=== PATIENT | male | born 1970 | race Caucasian/White ===

== ENCOUNTER 2021-02-18 20:06 | Emergency (ER) | payer BC ==
[2021-02-18] MEDS ORDERED: KETOROLAC 30 MG/ML INJ ONE (22:42)
[2021-02-18] MEDS ORDERED: HYDROCODONE/APAP 10/325 TAB ONE (22:42)
--- NOTE | 2021-02-18 22:43 | ER ---
Nurse's Notes [facility] [place] Name: Jordan Hdz Age: 50 yrs Sex: Male : 1970 Arrival Date: 02/18/2021 Time: 20:09 Bed 7 Private MD: Diagnosis: Pain in right knee;Effusion, right knee;Other internal derangements of right knee Presentation: 02/18 20:44 Chief complaint: Patient states: he has been having intermittent right knee off and on bb for a couple of months but pain is getting more frequent and today became so bad he couldn't walk on it her took two tylenol 10/325 prior to arrival pain is now 4/10. Coronavirus screen: At this time, the client does not indicate any symptoms associated with coronavirus-19. Ebola Screen: No symptoms or risks identified at this time. Initial Sepsis Screen: Does the patient meet any 2 criteria? No. Patient's initial sepsis screen is negative. Does the patient have a suspected source of infection? No. Patient's initial sepsis screen is negative. Risk Assessment: Do you want to hurt yourself or someone else? Patient reports no desire to harm self or others. Onset of symptoms was February 18, 2021. 20:44 Method Of Arrival: Wheelchair bb 20:44 Acuity: HERMELINDA 3 bb Historical: - Allergies: 20:48 No Known Allergies; bb - Home Meds: 20:48 tylenol 10/325 [Active]; Invokana oral oral [Active]; amlodipine oral [Active]; bb Metformin Oral [Active]; tizanidine oral oral [Active]; Ibuprofen Oral [Active]; - PMHx: 20:48 Diabetes - NIDDM; Hypertension; chronic back pain; bb - PSHx: 20:48 R ACL; dental surgery; bb - Immunization history:: Adult Immunizations up to date. - Social history:: Smoking status: Patient denies any tobacco usage or history of. - Family history:: not pertinent. Screenin:03 Abuse screen: Denies threats or abuse. Denies injuries from another. Nutritional rr5 screening: No deficits noted. Tuberculosis screening: No symptoms or risk factors identified. Fall Risk Gait- Impaired (20 pts.). Total Roman Fall Scale indicates No Risk (0-24 pts). Assessment: 20:40 General: Appears in no apparent distress. comfortable, Behavior is calm, cooperative, rr5 appropriate for age. Pain: Complains of pain in right knee Pain currently is 3 out of 10 on a pain scale. Quality of pain is described as aching, Pain began gradually, Is intermittent. Neuro: Level of Consciousness is awake, alert, obeys commands, Oriented to person, place, time. Cardiovascular: Capillary refill < 3 seconds Patient's skin is warm and dry. Respiratory: Airway is patent Respiratory effort is even, unlabored, Respiratory pattern is regular, symmetrical. GI: No signs and/or symptoms were reported involving the gastrointestinal system. 20:40 : No signs and/or symptoms were reported regarding the genitourinary system. EENT: No rr5 signs and/or symptoms were reported regarding the EENT system. Derm: Skin is intact, is healthy with good turgor, Skin temperature is warm. Musculoskeletal: Swelling present in right knee. 22:30 Reassessment: Patient appears in no apparent distress at this time. No changes from rr5 previously documented assessment. Patient is alert, oriented x 3, equal unlabored respirations, skin warm/dry/pink. 23:25 Reassessment: Patient appears in no apparent distress at this time. Patient is alert, rr5 oriented x 3, equal unlabored respirations, skin warm/dry/pink. discharge instruction given and explained without complaints made. Vital Signs: 20:44 BP 153 / 98; Pulse 92; Resp 16 S; Temp 98.5; Pulse Ox 96% on R/A; Weight 102.97 kg (R); bb Height 5 ft. 11 in. (180.34 cm) (R); Pain 4/10; 22:30 BP 165 / 90; Pulse 80; Resp 16; Pulse Ox 98% ; rr5 23:25 BP 156 / 95; Pulse 75; Resp 19; Pulse Ox 100% ; rr5 20:44 Body Mass Index 31.66 (102.97 kg, 180.34 cm) bb ED Course: 20:09 Patient arrived in ED. es 20:46 Triage completed. bb 20:48 Arm band placed on Patient placed in an exam room, on a stretcher, on pulse oximetry. bb Family accompanied patient. 20:52 Brendon Pena RN is Primary Nurse. rr5 21:03 Patient has correct armband on for positive identification. Bed in low position. Call rr5 light in reach. Pulse ox on. NIBP on. 21:03 No provider procedures requiring assistance completed. rr5 21:27 Shane Dolan MD is Attending Physician. [facility] 22:39 Knee immobilizer applied on right knee. rr5 22:39 crutches given. rr5 22:43 Pravin Bright MD is Referral Physician. brennan 22:47 Knee Right 3 View XRAY In Process Unspecified. EDMS 23:25 Patient did not have IV access during this emergency room visit. rr5 Administered Medications: 22:25 Drug: [place] (HYDROcodone-acetaminophen) 10 mg-325 mg 1 tabs {Note: rass 0.} Route: PO; rr5 23:25 Follow up: Response: No adverse reaction; RASS: Alert and Calm (0) rr5 22:37 Drug: Ketorolac 60 mg Route: IM; Site: left gluteus; rr5 23:25 Follow up: Response: No adverse reaction rr5 Outcome: 22:43 Discharge ordered by . [facility] 23:25 Discharged to home with crutches, with family. rr5 23:25 Condition: stable 23:25 Discharge instructions given to patient, family, Instructed on discharge instructions, follow up and referral plans. medication usage, Demonstrated understanding of instructions, follow-up care, medications, Prescriptions given X 2. 23:28 Patient left the ED. rr5 Signatures: Dispatcher [employer] Shane Vicente MD MD cha Salyer, Edna es Ballard, Brenda, RN RN Brendon Villagomez RN RN rr5
--- NOTE | 2021-02-18 22:43 | EDPHYS ---
Physician Documentation [facility] Name: Jordan Hdz Age: 50 yrs Sex: Male : 1970 Arrival Date: 02/18/2021 Time: 20:09 Bed 7 Private MD: ED Physician Shane Dolan HPI: 02/18 21:55 This 50 yrs old Male presents to ER via Wheelchair with complaints of Knee brennan Pain. 21:55 The patient presents with decreased range of motion, pain, that is acute. The brennan complaints affect the right knee. Context: The problem was sustained at an unknown site. Onset: The symptoms/episode began/occurred today. Modifying factors: The symptoms are alleviated by nothing. remaining still, the symptoms are aggravated by nothing. Associated signs and symptoms: Pertinent positives: swelling. Treatment prior to arrival includes: no previous treatment. Severity of symptoms: At their worst the symptoms were mild, moderate, in the emergency department the symptoms are unchanged. The patient has not experienced similar symptoms in the past. Historical: - Allergies: 20:48 No Known Allergies; bb - Home Meds: 20:48 tylenol 10/325 [Active]; Invokana oral oral [Active]; amlodipine oral [Active]; bb Metformin Oral [Active]; tizanidine oral oral [Active]; Ibuprofen Oral [Active]; - PMHx: 20:48 Diabetes - NIDDM; Hypertension; chronic back pain; bb - PSHx: 20:48 R ACL; dental surgery; bb - Immunization history:: Adult Immunizations up to date. - Social history:: Smoking status: Patient denies any tobacco usage or history of. - Family history:: not pertinent. ROS: 21:55 Constitutional: Negative for fever, chills, and weight loss, Eyes: Negative for injury, brennan pain, redness, and discharge, ENT: Negative for injury, pain, and discharge, Neck: Negative for injury, pain, and swelling, Cardiovascular: Negative for chest pain, palpitations, and edema, Respiratory: Negative for shortness of breath, cough, wheezing, and pleuritic chest pain, Abdomen/GI: Negative for abdominal pain, nausea, vomiting, diarrhea, and constipation, Back: Negative for injury and pain, : Negative for injury, bleeding, discharge, and swelling, Skin: Negative for injury, rash, and discoloration, Neuro: Negative for headache, weakness, numbness, tingling, and seizure, Psych: Negative for depression, anxiety, suicide ideation, homicidal ideation, and hallucinations, Allergy/Immunology: Negative for hives, rash, and allergies, Endocrine: Negative for neck swelling, polydipsia, polyuria, polyphagia, and marked weight changes, Hematologic/Lymphatic: Negative for swollen nodes, abnormal bleeding, and unusual bruising. 21:55 MS/extremity: Positive for decreased range of motion, pain, swelling, tenderness, of the lateral aspect of right knee, medial aspect of right knee and right knee. Exam: 21:55 Constitutional: This is a well developed, well nourished patient who is awake, alert, brennan and in no acute distress. Head/Face: Normocephalic, atraumatic. Eyes: Pupils equal round and reactive to light, extra-ocular motions intact. Lids and lashes normal. Conjunctiva and sclera are non-icteric and not injected. Cornea within normal limits. Periorbital areas with no swelling, redness, or edema. ENT: Nares patent. No nasal discharge, no septal abnormalities noted. Tympanic membranes are normal and external auditory canals are clear. Oropharynx with no redness, swelling, or masses, exudates, or evidence of obstruction, uvula midline. Mucous membranes moist. Neck: Trachea midline, no thyromegaly or masses palpated, and no cervical lymphadenopathy. Supple, full range of motion without nuchal rigidity, or vertebral point tenderness. No Meningismus. Chest/axilla: Normal chest wall appearance and motion. Nontender with no deformity. No lesions are appreciated. Cardiovascular: Regular rate and rhythm with a normal S1 and S2. No gallops, murmurs, or rubs. Normal PMI, no JVD. No pulse deficits. Respiratory: Lungs have equal breath sounds bilaterally, clear to auscultation and percussion. No rales, rhonchi or wheezes noted. No increased work of breathing, no retractions or nasal flaring. Abdomen/GI: Soft, non-tender, with normal bowel sounds. No distension or tympany. No guarding or rebound. No evidence of tenderness throughout. Back: No spinal tenderness. No costovertebral tenderness. Full range of motion. Male : Normal genitalia with no discharge or lesions. Skin: Warm, dry with normal turgor. Normal color with no rashes, no lesions, and no evidence of cellulitis. Neuro: Awake and alert, GCS 15, oriented to person, place, time, and situation. Cranial nerves II-XII grossly intact. Motor strength 5/5 in all extremities. Sensory grossly intact. Cerebellar exam normal. Normal gait. Psych: Awake, alert, with orientation to person, place and time. Behavior, mood, and affect are within normal limits. 21:55 Musculoskeletal/extremity: ROM: limited active range of motion, limited passive range of motion, limited active range of motion due to pain, limited passive range of motion due to pain, Circulation is intact in all extremities. Sensation intact. Compartment Syndrome exam of affected extremity: is normal. Joints: All joints are normal except effusion, limited range of motion, pain at rest, painful range of motion, swelling, Weight bearing: can bear weight with assistance only, DVT Exam: negative Homans' sign noted on exam, no appreciated bluish discoloration, no erythema, no increased warmth, pain, swelling, tenderness. Vital Signs: 20:44 BP 153 / 98; Pulse 92; Resp 16 S; Temp 98.5; Pulse Ox 96% on R/A; Weight 102.97 kg (R); bb Height 5 ft. 11 in. (180.34 cm) (R); Pain 4/10; 22:30 BP 165 / 90; Pulse 80; Resp 16; Pulse Ox 98% ; rr5 23:25 BP 156 / 95; Pulse 75; Resp 19; Pulse Ox 100% ; rr5 20:44 Body Mass Index 31.66 (102.97 kg, 180.34 cm) bb MDM: 21:27 Patient medically screened. [facility] 21:55 Differential diagnosis: closed fracture, contusion, tendonitis. Data reviewed: vital brennan signs, nurses notes, radiologic studies, plain films. Data interpreted: pvc monitor: rate is 92 beats/min, rhythm is regular. Test interpretation: by ED physician or midlevel provider: plain radiologic studies. Counseling: I had a detailed discussion with the patient and/or guardian regarding: the historical points, exam findings, and any diagnostic results supporting the discharge/admit diagnosis, lab results, radiology results, the need for outpatient follow up, for definitive care, a orthopedic surgeon. 02/18 21:55 Order name: Knee Right 3 View XRAY [facility] 02/18 21:55 Order name: Knee Immobilizer; Complete Time: 22:38 [facility] 02/18 21:55 Order name: Crutches; Complete Time: 22:38 [facility] Administered Medications: 22:25 Drug: [place] (HYDROcodone-acetaminophen) 10 mg-325 mg 1 tabs {Note: rass 0.} Route: PO; rr5 23:25 Follow up: Response: No adverse reaction; RASS: Alert and Calm (0) rr5 22:37 Drug: Ketorolac 60 mg Route: IM; Site: left gluteus; rr5 23:25 Follow up: Response: No adverse reaction rr5 Disposition: 02/18/21 22:43 Discharged to Home. Impression: Pain in right knee, Effusion, right knee, Other internal derangements of right knee. - Condition is Stable. - Discharge Instructions: Joint Pain, How to Use a Knee Brace, Knee Effusion, Knee Pain, Cryotherapy, Bedn-gr-Cent, Knee Effusion, [id number], Cryotherapy, Knee Pain, [id number]. - Prescriptions for Ibuprofen 600 mg Oral Tablet - take 1 tablet by ORAL route every 6 hours As needed take with food; 20 tablet. Tylenol- Codeine #3 300-30 mg Oral Tablet - take 2 tablets by ORAL route every 4-6 hours As needed; 20 tablet. - Medication Reconciliation Form, Thank You Letter, Antibiotic Education, Prescription Opioid Use form. - Follow up: Private Physician; When: 2 - 3 days; Reason: Recheck today's complaints, Continuance of care, Re-evaluation by your physician. Follow up: Pravin Bright; When: 2 - 3 days; Reason: Recheck today's complaints, Re-evaluation by your physician. - Problem is new. - Symptoms have improved. Signatures: Dispatcher [employer] Shane Vicente MD MD cha Ballard, Brenda, RN RN Brendon Villagomez RN RN rr5 Corrections: (The following items were deleted from the chart) 23:28 22:43 02/18/2021 22:43 Discharged to Home. Impression: Pain in right knee; Effusion, rr5 right knee; Other internal derangements of right knee. Condition is Stable. Discharge Instructions: Joint Pain, How to Use a Knee Brace, Knee Effusion, Knee Pain, Cryotherapy, [id number], Knee Effusion, [id number]-[id number], Cryotherapy, Knee Pain, [id number]. Prescriptions for Ibuprofen 600 mg Oral Tablet - take 1 tablet by ORAL route every 6 hours As needed take with food; 20 tablet, Tylenol-Codeine #3 300-30 mg Oral Tablet - take 2 tablets by ORAL route every 4-6 hours As needed; 20 tablet. and Forms are Medication Reconciliation Form, Thank You Letter, Antibiotic Education, Prescription Opioid Use. Follow up: Private Physician; When: 2 - 3 days; Reason: Recheck today's complaints, Continuance of care, Re-evaluation by your physician. Follow up: Pravin Bright; When: 2 - 3 days; Reason: Recheck today's complaints, Re-evaluation by your physician. Problem is new. Symptoms have improved. brennan
[2021-02-18 23:34] VITALS: BP 153/98; TEMP 98.5; O2SAT 96
--- NOTE | 2021-02-19 09:08 | RAD REPORT ---
EXAM DESCRIPTION: RAD - Knee Right 3 View - 02/18/2021 10:47 pm CLINICAL HISTORY: Right knee pain FINDINGS: No fracture or dislocation is seen. Postsurgical changes. A screw is present within tibia. A large joint effusion is seen. Moderate osteoarthritis involves the knee. 9 millimeter bony density along the medial compartment may represent a loose body
== END 2021-02-18 23:28 | disposition home or self-care (01) ==
LOC: ER 20:06
DX: M23.8X1 Other internal derangements of right knee (principal); M25.461 Effusion, right knee; I10 Essential (primary) hypertension; E11.9 Type 2 diabetes mellitus without complications
CPT/HCPCS: 96372; 99284